=== PATIENT | female | born 1980 | race Caucasian/White ===

== ENCOUNTER 2017-07-17 05:09 | Observation (INO) ==
[2017-07-16 22:49] LABS: Basophils % 0.3 %; Eosinophils # 0.1 K/mcL (0.0-0.6); Eosinophils % 0.5 %; Hematocrit 37.1 % (35.3-44.9); Hemoglobin 12.8 g/dL (11.5-15.4); Immature Granulocytes % 0.5 % (0-4); Lymphocytes # 1.6 K/mcL (0.6-4.6); Lymphocytes % 17.1 %; Mean Corpuscular HGB Conc 34.5 g/dL (31.6-35.5); Mean Corpuscular Hemoglobin 31.4 pg (28.0-33.3); Mean Corpuscular Volume 90.9 fL (83.0-100.0); Mean Platelet Volume 11.1 fL (9.4-12.4); Monocytes # 0.8 K/mcL (0.0-1.3); Monocytes % 8.2 %; Neutrophils # 7.1 K/mcL (1.6-8.9); Platelet Count 165 K/mcL (140-400); Red Blood Count 4.08 M/mcL (3.82-4.97); Red Cell Distribution Width 13.2 % (11.5-14.5); Segmented Neutrophils % 73.4 %
[2017-07-16 22:57] LABS: Amphetamine Screen,Urine Negative ng/mL (Cutoff=1000); Barbiturate Screen,Urine Negative ng/mL (Cutoff=200); Benzodiazepines Screen,Urine Negative ng/mL (Cutoff=200); Cannabinoid Screen,Urine Negative ng/mL (Cutoff = 50); Cocaine Screen,Urine Negative ng/mL (Cutoff= 300); Opiate Screen,Urine Negative ng/mL (Cutoff=300); Phencyclidine Screen,Urine Negative ng/mL (Cutoff=25)
--- NOTE | 2017-07-16 23:06 | OB/GYN History & Physical ---
Date of Encounter: 07/16/17 Time of Encounter: 10:50 Assessment and Plan (1) 39 weeks gestation of Current visit: Yes Status: Acute (2) Uterine contractions Current visit: Yes Status: Acute Patient was 5-6 cm dilated upon arrival. Contractions have been 2-3 cm apart. - Patient will be admitted. Nuabin and epidural if desired GBS negative Anticipate History of Present Illness Chief complaint: Contractions HPI: Ms. Andujar is a 37 year old female at 39 wks gestation with PMH of late care that presents for labor contractions. Patient says that she has been having contractions 8 am this morning. They started out 15-20 minutes apart but have been 2-3 minutes apart upon arrival. She admits to good movement. She denies any vaginal fluid leakage or bleeding. She denies headaches , vision changes, chest pain, nausea, vomiting, fever, dysuria, and diarrhea. complicated with ISSA of 5.7, AMA, Grandpuliparous, history of PPH GBS: negative HepBSab: non-reactive (06/09/17) HIV Ag/Ab: non-reactive Blood type: O- Past Med Surg Social Fam HX - Past Medical History Medical history: no medical history Psychiatric history: no psych history - Past Surgical History Surgical History: no surgical history - Social History Smoking Status: Never smoker Smokeless Tobacco Status: No Alcohol use: none Drug use: none Obstetrical History - Pregnancies : 9 Para: 6 Term: 6 : 1 Ab's: 1 Livin Medications and Allergies No Known Home Drugs 07/16/17 [History] 3 Allergy/AdvReac Type Severity Reaction Status Date / Time No Known Allergies Allergy Verified 07/16/17 22:24 Exam - Vital Signs Vital signs: BP: 116/70 P: 91 FHR: 121 [place]: 101 - Constitutional Constitutional: well developed, well nourished, no acute distress, average body habitus - HEENT HEENT: PERRL, Mucus Membranes Moist - Lungs Respiratory exam: CTAB - Cardiovascular Cardiovascular exam: RRR, +S1, +S2 - Abdomen Abdomen: Present: bowel sounds normal, gravid, non tender - Extremities Extremities exam: normal inspection, radial pulses palpable and symmetrical Deep Tendon Reflex Grade: 2+ Normal - Cervix Dilation: 5 (5-6 cm per nurse) Results Result Diagrams: 07/16/17 Unknown All other labs normal. - VTE Reasons for not Prescribing Prophylaxis: Treatment not Indicated - Low risk for VTE
--- NOTE | 2017-07-17 03:17 | OB/GYN Procedure Note ---
Delivery - Delivery Date: 07/17/17 Provider: Concetta Chavez Intrapartum events: none Delivery induction: none Delivery augmentation: rupture of membranes Delivery monitor: external FHT, external uterine Anesthesia: local Estimated Blood Loss: 150 - Infant (s) Infant A Infant Delivery Date: 07/17/17 Infant Delivery Time: 02:22 Presentation: vertex Position: OP Route of delivery: Gender: Male Viability: Viable Pounds: 8 Ounces: 3 Weight Gram: 3720 kg at 1 minute: 8 at 5 mins: 9 Shoulder Dystocia: not encountered Specimens collected: cord blood Placenta: spontaneous Cord: 3 umbilical vessels - Repair Episiotomy: none Laceration Description: Perineal - 2nd Degree - Complications Delivery complications: none Delivery comments: Spontaneous labor, progressed to complete, began maternal bearing down efforts to of liveborn male. Vertex delivered OP, shoulders and body easily followed , no nuchal cord or shoulder dystocia encountered. Vigorous placed on maternal abdomen APGARS 8/9. Placenta delivered spontaneously, complete on inspection, fundus firm at U and pitocin started per policy. Second degree perineal laceration repaired in the usual fashion with 3-0 vicryl. Mother and left bonding in skin to skin. EBL 150 head slow to deliver, called for Dr. Beyer to attend delivery in case of shoulder dystocia prior to delivery of head. - Disposition Mom disposition: stable in LDR [place] disposition: stable in LDR
[~2017-07-17 05:09] MED LIST: Acetaminophen 325 MG TABLET PO PRN; Benzocaine/Menthol 56 GM AEROSOL SPRAY TP PRN; Famotidine 20 MG/2 ML VIAL IVP PRN; Ibuprofen 600 MG TABLET PO PRN; Lanolin 7 G OINT...G. TP PRN; Lidocaine 1% 20 ML MDV ONE; Measles/Mumps/Rubella Vacc 0.5 ML VIAL SQ PRN; Metoclopramide 10 MG/2 ML VIAL IVP PRN; Naloxone 0.4 MG/ML INJ IVP PRN; Ondansetron 4 MG/2 ML VIAL IVP PRN; Oxytocin 20 units/ LR 1000 mL 20 UNIT/1,000 ML BAG IVC ONE; Oxytocin 20 units/ LR 1000 mL 20 UNIT/1,000 ML BAG IVC SCH; Ringers Solution, Lactated 1,000 ML IVC SCH
--- NOTE | 2017-07-17 08:29 | Discharge Summary ---
Date of Encounter: 07/17/17 Time of Encounter: 08:27 - Discharge Diagnosis (1) Vaginal delivery Priority: Primary Status: Acute Comments: Continue routine care discharge home today per patient request (2) Breast feeding status of mother Priority: Secondary Status: Acute Comments: support prn - Discharge Medications Home Medications: Ferrous Sulfate 325 mg PO DAILY tablet 07/17/17 [Rx] Ibuprofen [Motrin] 600 mg PO Q6HR PRN tablet 07/17/17 [Rx] Vit/FA 1 each PO DAILY tablet 07/17/17 [Rx] Allergies/Adverse Reactions: 3 Allergy/AdvReac Type Severity Reaction Status Date / Time No Known Allergies Allergy Verified 07/16/17 22:24 Data Procedures and tests throughout hospitalization: Laboratory Tests 07/16/17 07/16/17 22:36 Unknown WBC 9.6 RBC 4.08 Hgb 12.8 Hct 37.1 MCV 90.9 MCH 31.4 MCHC 34.5 RDW 13.2 Plt Count 165 MPV 11.1 Immature Gran % 0.5 Seg Neutrophils % 73.4 Lymphocytes % 17.1 Monocytes % 8.2 Eosinophils % 0.5 Basophils % 0.3 Neutrophils # 7.1 Lymphocytes # 1.6 Monocytes # 0.8 Eosinophils # 0.1 Basophils # 0.0 Urine Opiates Screen Negative Ur Barbiturates Screen Negative Ur Phencyclidine Scrn Negative Ur Amphetamines Screen Negative U Benzodiazepines Scrn Negative Urine Cocaine Screen Negative U Marijuana (THC) Screen Negative Labs on day of discharge: Labs from last 24 hours 07/16/17 07/16/17 Unknown 22:36 WBC 9.6 RBC 4.08 Hgb 12.8 Hct 37.1 MCV 90.9 MCH 31.4 MCHC 34.5 RDW 13.2 Plt Count 165 MPV 11.1 Immature Gran % 0.5 Seg Neutrophils % 73.4 Lymphocytes % 17.1 Monocytes % 8.2 Eosinophils % 0.5 Basophils % 0.3 Neutrophils # 7.1 Lymphocytes # 1.6 Monocytes # 0.8 Eosinophils # 0.1 Basophils # 0.0 Urine Opiates Screen Negative Ur Barbiturates Screen Negative Ur Phencyclidine Scrn Negative Ur Amphetamines Screen Negative U Benzodiazepines Scrn Negative Urine Cocaine Screen Negative U Marijuana (THC) Screen Negative Date of admission: 07/16/17 22:13 Discharging clinician: Brooke Ramirez Anticipated date of discharge: 07/17/17 - Patient Status Disposition: Home, Self-Care Condition: Good Functional capacity at discharge: independent ambulation - Discharge Instructions Follow Up With: Concetta Chavez CNM [Advanced Practice Nurse] - - Diet and Activity Activity: increase activity as tolerated Diet: regular diet Hospital Course Reason for admission: active labor Delivery: Episiotomy: none Laceration: 2nd degree Other procedures: none complications: none Discharge diagnosis: IUP at term delivered [place] baby: male (breast feeding) Time Attestation: Total time spent providing and/or coordinating discharge services: Time Spent: Less than 30 minutes Exam - Constitutional Vitals: Temp Pulse Resp BP Pulse Ox 98.5 F 77 16 131/72 98 07/17/17 06:35 07/17/17 06:35 07/17/17 06:35 07/17/17 06:35 07/17/17 06:35 General appearance IM: A&O X 3, pleasant, answers questions appropriately - Respiratory Respiratory exam: Present: CTAB - Cardiovascular Cardiovascular exam IM: Present: RRR, +S1, +S2 - GI/Abdominal GI/Abdominal exam IM: normal bowel sounds - Uterine Tone: Firm Uterus Position: 1 Finger Below Umbilicus, Midline - Extremities Exam Extremities exam IM: Present: full ROM, normal capillary refill, normal inspection - Neurological Exam Neurological exam: alert, oriented X3, reflexes normal
[2017-07-17 08:59] VITALS: BP 113/68
[2017-07-17] MEDS ORDERED: Prenatal Vit/FA 1 EACH TABLET PO SCH (09:00)
== END 2017-07-17 15:00 | disposition home or self-care (01) ==
LOC: 1NENULAB → 1NENUOBS 05:09
PROVIDERS: ADMIT Advanced Practice Midwife; ATTEND Advanced Practice Midwife

== ENCOUNTER 2020-01-03 02:18 | Inpatient (IN) ==
[2020-01-03] MEDS ORDERED: *HR* FentaNYL (PF) 100 MCG/2 ML VIAL IVP PRN (02:50)
[2020-01-03] MEDS ORDERED: Naloxone 0.4 MG/ML INJ IVP PRN (02:50)
[2020-01-03] MEDS ORDERED: Metoclopramide 10 MG/2 ML VIAL IVP PRN (02:50)
[2020-01-03] MEDS ORDERED: Famotidine 20 MG/2 ML VIAL IVP PRN (02:50)
[2020-01-03] MEDS ORDERED: Ringers Solution, Lactated 1,000 ML IVC SCH (03:00)
[2020-01-03 03:14] LABS: Basophils % 0.2 %; Eosinophils % 0.2 %; Hematocrit 36.1 % (35.3-44.9); Hemoglobin 12.2 g/dL (11.5-15.4); Immature Granulocytes % 0.3 % (0-4); Lymphocytes # 1.3 K/mcL (0.6-4.6); Lymphocytes % 11.5 %; Mean Corpuscular HGB Conc 33.8 g/dL (31.6-35.5); Mean Corpuscular Hemoglobin 31.5 pg (28.0-33.3); Mean Corpuscular Volume 93.3 fL (83.0-100.0); Mean Platelet Volume 11.1 fL (9.4-12.4); Monocytes # 0.9 K/mcL (0.0-1.3); Monocytes % 7.7 %; Neutrophils # 9.3 K/mcL (1.6-8.9); Platelet Count 164 K/mcL (140-400); Red Blood Count 3.87 M/mcL (3.82-4.97); Red Cell Distribution Width 13.4 % (11.5-14.5); Segmented Neutrophils % 80.1 %; White Blood Count 11.7 K/mcL (4.3-11.1)
[2020-01-03 03:23] LABS: Amphetamine Screen,Urine Negative ng/mL (Cutoff=1000); Barbiturate Screen,Urine Negative ng/mL (Cutoff=200); Benzodiazepines Screen,Urine Negative ng/mL (Cutoff=200); Cannabinoid Screen,Urine Negative ng/mL (Cutoff = 50); Cocaine Screen,Urine Negative ng/mL (Cutoff= 300); Opiate Screen,Urine Negative ng/mL (Cutoff=300); Phencyclidine Screen,Urine Negative ng/mL (Cutoff=25)
[2020-01-03] MEDS ORDERED: Oxytocin 20 units/ LR 1000 mL 20 UNIT/1,000 ML BAG IVC ONE ×2 (06:25→09:20)
[2020-01-03] MEDS ORDERED: Acetaminophen 325 MG TABLET PO PRN (09:23)
[2020-01-03] MEDS ORDERED: Lanolin 7 G OINT...G. TP PRN (09:23)
[2020-01-03] MEDS ORDERED: Prenatal Vit/FA 1 EACH TABLET PO SCH (09:23)
[2020-01-03] MEDS ORDERED: Rho Immune Globulin 1,500 UNIT SYRINGE IM PRN (09:23)
[2020-01-03] MEDS ORDERED: Measles/Mumps/Rubella Vacc 0.5 ML VIAL SQ PRN (09:23)
[2020-01-03] MEDS ORDERED: Benzocaine/Menthol 56 GM AEROSOL SPRAY TP PRN (09:23)
[2020-01-03] MEDS ORDERED: Oxytocin 20 units/ LR 1000 mL 20 UNIT/1,000 ML BAG IVC SCH (09:23)
[2020-01-03] MEDS ORDERED: Ibuprofen 600 MG TABLET PO PRN (09:23)
[2020-01-03 10:45] VITALS: BP 120/72
== END 2020-01-03 14:35 | disposition home or self-care (01) | DRG 807 ==
LOC: 1NENULAB → 1NENUOBS 08:30
PROVIDERS: ADMIT Registered Nurse; ATTEND Registered Nurse